=== PATIENT | female | born 1945 | race Two or more races ===

== ENCOUNTER 2025-07-05 19:16 | Emergency (ER) | payer MEDICARE, OTHER ==
[~2025-07-05] VITALS: Ht 172.7 cm; Wt 101.5 kg
--- NOTE | 2025-07-05 20:08 | DVH ---
EXAM: XY L KNEE 3V XRAY INDICATION: left knee pain TECHNIQUE: 3 views of the left knee COMPARISON: None FINDINGS/IMPRESSION: Severe lateral weight-bearing compartment joint space loss with the appearance of [id number] contact and subsequent genu valgus. Areas of sclerosis along the distal femoral diaphysis which may represent enchondroma versus bone infarct. Tricompartmental marginal osteophytosis. Prominent ossific bodies posterior to the joint space, which may reflect free-floating bodies in the region of the Braun's cyst. Small to medium knee joint effusion. Consider further evaluation with MRI of the left knee with and without contrast.
[2025-07-05 21:02] VITALS: PULSE 85; RESP 20; TEMP 97.9; O2SAT 99
[2025-07-05] MEDS ORDERED: METH4PAK PO (21:07)
[2025-07-05] MEDS ORDERED: ACE3T PO (21:07)
--- NOTE | 2025-07-05 21:07 | ED.PDOC ---
Musculoskeletal HPI Comments 79-year-old female presents to ER with complaints of left knee pain x2 weeks. Patient with past medical history significant for chronic left knee pain/arthritis of left knee reports that he has been experiencing worsening left knee pain x 2 weeks. She rates her current pain a 10/10 to left knee without radiation and notes she has been taking ibuprofen for her pain without relief. Patient presents to ER with knee brace noted to left knee and ambulatory with use of cane. Denies fever, numbness/tingling, hip pain, trauma/falls or any further symptoms/complaints Chief Complaint: Lower Extremity Time Seen by MD: 19:31 Primary Care Provider: ALEXANDRA Reviewed Notes: Nurses Notes, Medications, Allergies Allergies: Coded Allergies: NO KNOWN ALLERGIES (Unverified , 07/05/25) Home Meds Active Scripts Acetaminophen W/ Codeine (Tylenol W/Cod #3) 1 Tab Tb, 1 TAB PO Q6HPRN, #10 TAB 0 Refills Prov:MUNDO GLORIA 07/05/25 Methylprednisolone (Medrol Dosepak) 4 Mg Jose, 4 MG PO UD, #21 TAB 0 Refills UAD Prov:MUNDO GLORIA 07/05/25 Information Source: Patient Mode of Arrival: Ambulatory Past Medical History PAST MEDICAL HISTORY: Arthritis (Left knee ), HTN Surgical History: Denies all surgeries MINERALOGY PROFESSOR History: No Pertinent MINERALOGY PROFESSOR History Family History Family History: Unknown Social History Smoker: Non-Smoker Alcohol: Denies ETOH Use Drugs: Denies Drug Use Lives In: Home Constitutional: denies: chills, diaphoresis, fatigue, fever, malaise, sweats, weakness, others EENTM: denies: blurred vision, double vision, ear bleeding, ear discharge, ear drainage, ear pain, ear ringing, eye pain, eye redness, hearing loss, mouth pain, mouth swelling, nasal discharge, nose bleeding, nose congestion, nose pain, photophobia, tearing, throat pain, throat swelling, voice changes, others Respiratory: denies: cough, hemoptysis, orthopnea, SOB at rest, shortness of breath, SOB with excertion, stridor, wheezing, others Cardiovascular: denies: chest pain, dizzy spells, diaphoresis, Dyspnea on exertion, edema, irregular heart beat, left arm pain, lightheadedness, palpitations, PND, syncope, others Gastrointestinal: denies: abdomen distended, abdominal pain, blood streaked bowels, constipated, diarrhea, dysphagia, difficulty swallowing, hematemesis, melena, nausea, poor appetite, poor fluid intake, rectal bleeding, rectal pain, vomiting, others Genitourinary: denies: abnormal vagina bleeding, burning, dyspareunia, dysuria, flank pain, frequency, hematuria, incontinence, pain, , vagina discharge, urgency, others Neurological: denies: dizziness, fainting, headache, left sided numbness, left sided weakness, numbness, paresthesia, pre-existing deficit, right sided numbness, right sided weakness, seizure, speech problems, tingling, tremors, weakness, others Musculoskeletal: reports: others (As stated in HPI) Integumetry: denies: bruises, change in color, change in hair/nails, dryness, laceration, lesions, lumps, rash, wounds, others Allergic/Immunocompromised: denies: Difficulty Healing, Frequent Infections, Hives, Itching, others Hematologic/Lymphatic: denies: anemia, blood clots, easy bleeding, easy bruising, swollen glands, others Endocrine: denies: excessive hunger, excessive sweating, excessive thirst, excessive urination, flushing, intolerance to cold, intolerance to heat, unexplained weight gain, unexplained weight loss, others Psychiatric: denies: anxiety, bipolar disorder, depression, hopeless, panic disorder, schizophrenia, sleepless, suicidal, others Physical Exam General Appearance: No Apparent Distress, Obese HEENT: Normal ENT Inspection, PERRL/EOMI, Pharynx Normal, TMs Normal Neck: Full Range of Motion, Non-Tender, Normal Respiratory: Chest Non-Tender, Lungs Clear, No Accessory Muscle Use, No Respiratory Distress, Normal Breath Sounds Cardiovascular: No Murmur, No Gallop, Regular Rate/Rhythm Breast Exam: Deferred Gastrointestinal: NOT DONE Genitalia: Deferred Pelvic: Deferred Rectal: Deferred Extremities: No calf tenderness, Normal capillary refill, Normal range of motion, No pedal edema Musculoskeletal : Extremity Location: Knee (TTP/mild swelling noted to left anterior knee. Pulses intact. No other TTP to left lower extremity noted. Gait slowed with use of cane) Neurologic: Alert, No Motor Deficits, Normal Affect, Normal Mood, No Sensory Deficits Cerebellar Function: Normal Reflexes: Normal Skin: Dry, Normal Color, Warm Peripheral Pulses: 2+ dorsalis pedis (R), 2+ dorsalis pedis (L), 2+ Radial (R), 2+ Radial (L), 2+ Brachial (R), 2+ Brachial (L) Lymphatic: No Adenopathy Was a procedure done? Was a procedure done?: No Sedation Sedation?: No Differential Diagnosis EXT Differential Diagnosis: Cellulitis, Deep Vein Thrombosis, Fracture, Dislocation, Neurovascular injury X-Ray, Labs, Meds, VS Vital Signs Date Time Temp Pulse Resp B/P (MAP) Pulse Ox O2 Delivery O2 Flow Rate FiO2 07/05/25 21:02 97.9 85 20 99 97.9 07/05/25 21:02 Room Air* 0 21 07/05/25 19:24 97.9 85 20 165/114 99 97.9 PATIENT: LUIS FERNANDO STANLEYCT: [id number]: [id number] : 1945 LOC: ER ROOM / BED: / AGE / SEX: 79 / F ADM STATUS: REG ER SERVICE 30 ORDERING PHYSICIAN: MUNDO GLORIA PROCEDURE(s): LKNE3 - L KNEE 3V XRAY REASON: left knee pain ORDER NUMBER(s): [id number], ACCESSION NUMBER(s): [id number] EXAM: XY L KNEE 3V XRAY INDICATION: left knee pain TECHNIQUE: 3 views of the left knee COMPARISON: None FINDINGS/IMPRESSION: Severe lateral weight-bearing compartment joint space loss with the appearance of [id number] contact and subsequent genu valgus. Areas of sclerosis along the distal femoral diaphysis which may represent enchondroma versus bone infarct. Tricompartmental marginal osteophytosis. Prominent ossific bodies posterior to the joint space, which may reflect free-floating bodies in the region of the Braun's cyst. Small to medium knee joint effusion. Consider further evaluation with MRI of the left knee with and without contrast. ATED BY: DERRICK PATINO MD DICTATED DATE/TIME: 07/05/252005 SIGNED BY: DERRICK PATINO MD SIGNED DATE/TIME: 07/05/252005 CC: Left knee x-ray reviewed Patient neurovascularly intact [place] 5/325 mg p.o. ordered Zofran 4 mg p.o. ordered Advised on continued use of left knee brace Advised on continued use of cane Advised on elevation and alternate ice on/off as needed for pain Advised to follow up with PCP and orthopedics in 1-2 days Patient verbalized understanding and agreeable with current plan of care Advised to return to ER immediately if symptoms worsen Images Reviewed?: Images reviewed and evaluated by me Time of 1ST Reevaluation: 20:44 Reevaluation 1ST: N/A Patient Education/Counseling: Diagnosis, Treatment, Prognosis, Need For Follow Up Family Education/Counseling: Diagnosis, Treatment, Prognosis, Need For Follow Up Departure 1 Departure Time of Disposition: 21:05 Impression: Primary Impression: Arthritis of knee, left Disposition: 01 HOME / SELF CARE / HOMELESS Condition: Stable e-Prescriptions Acetaminophen W/ Codeine (Tylenol W/Cod #3) 1 Tab Tb 1 TAB PO Q6HPRN, #10 TAB 0 Refills Prov: MUNDO GLORIA 07/05/25 Methylprednisolone (Medrol Dosepak) 4 Mg Jose 4 MG PO UD, #21 TAB 0 Refills UAD Prov: MUNDO GLORIA 07/05/25 Discharged With: Other (DAUGHTER) Critical Care Note Critical Care Time?: No Stability Stability form required: No Heart Score Heart Score: Heart Score Response (Comments) Value History N/A 0 EKG N/A 0 Age N/A 0 Risk Factors N/A 0 Troponin N/A 0 Total 0 MUNDO GLORIA Jul 05, 2025 21:07
[2025-07-05] MEDS: ONDANSETRON ODT 4 MG TAB PO ONE (21:15)
[2025-07-05] MEDS: HYDROcodone-ACET 5/325MG TAB PO ONE (21:15)
[2025-07-05 21:20] VITALS: BP 154/94
== END 2025-07-05 21:25 | disposition home or self-care (01) ==
LOC: ER 19:16
DX: M17.12 Unilateral primary osteoarthritis, left knee (principal); I10 Essential (primary) hypertension; Z79.899 Other long term (current) drug therapy
CPT/HCPCS: 73562; 99283; Q0162